=== PATIENT | female | born 1955 | race Caucasian/White ===

== ENCOUNTER → 2016-06-06 | Outpatient (CLI) | payer BC ==
[2016-06-06 12:02] LABS: Anion Gap 12 mmol/L; Blood Urea Nitrogen 17 mg/dL (7-17); Carbon Dioxide 29 mmol/L (22-30); Chloride 103 mmol/L (98-107); Non-African American GFR(MDRD) >60 (>60 ml/min/1.73 sqM); Sodium 144 mmol/L (137-145)
[2016-06-06 12:54] LABS: CH 31.4; CHCM 33.1; HDW 2.22; HGB 14.7 gm/dL (11.4-16.0); MCH 31.2 pg (25.0-35.0); MCHC 32.8 g/dL (31.0-37.0); Mean Platelet Volume 6.9; RBC 4.73 m/uL (3.80-5.40); RDW 11.7 % (11.5-15.5); WBC 9.3 k/uL (3.8-10.6)
== END | disposition home or self-care (01) ==
LOC: LABPAT 11:04
PROVIDERS: ATTEND Internal Medicine Interventional Cardiology
DX: Z01.812 Encounter for preprocedural laboratory examination (principal); R07.9 Chest pain, unspecified
CPT/HCPCS: 80051; 82565; 84520; 85027

== ENCOUNTER 2016-06-13 11:28 | Day surgery (SDC) | payer BC ==
[2016-06-11 14:04] VITALS: BMI 25.4
[~2016-06-13 11:28] MED LIST: ALPRAZolam 0.25 MG TAB PO PRN; ALPRAZolam 0.5 MG TAB PO PRN; ASPIRIN 325 MG TAB PO STA; NITROGLYCERIN SL TABS 0.4 MG TAB SUBLINGUAL PRN; SODIUM CHLORIDE 0.9% 1,000 ML in EMPTY BAG 1 BAG IV ONE
[2016-06-13] MEDS ORDERED: ASPIRIN 81 MG CHEW ONE (12:00)
[2016-06-13 12:17] VITALS: RESP 18
[2016-06-13] MEDS ORDERED: MIDAZOLAM 2 MG/2 ML VIAL IV ONE (12:38)
[2016-06-13] MEDS: MIDAZOLAM 2 MG/2 ML VIAL IV ONE ×2 (12:45→12:58)
[2016-06-13] MEDS ORDERED: LIDOCAINE 2% INJ 20 MG/ML SQ ONE (12:47)
[2016-06-13] MEDS: VERAPAMIL SYRINGE (5 MG/10 ML) INTRAARTER ONE ×2 (12:50→13:02)
[2016-06-13] MEDS ORDERED: RX INFO: IV CONTRAST WAS GIVEN 1 EACH MISC MISCELLANE PRN (13:14)
[2016-06-13] MEDS ORDERED: SODIUM CHLORIDE 0.9% 1,000 ML IV SCH (13:15)
[2016-06-13] MEDS ORDERED: IOHEXOL 350 MG/ML 100 ML BOTTLE INJ ONE (13:15)
[2016-06-13 17:26] VITALS: BP 124/65; PULSE 73; TEMP 98
--- NOTE | 2016-06-13 21:54 | LTR ---
June 13, 2016 RE: Sherry Knapp Dear Ali: Ms. Sherry Knapp underwent a heart catheterization which showed normal coronary angiogram. The procedure was performed from the right radial artery and without any complication. Thank you for allowing me to participate in her care. Sincerely, PRIYANKA HICKEY MD
--- NOTE | 2016-06-13 21:58 | CC ---
DATE OF SERVICE: June 13, 2016 PERFORMING PHYSICIAN: Kin Jerome, conductor freight. PROCEDURE PERFORMED: Selective right and left coronary angiogram. INDICATION: This is a pleasant 61-year-old female patient who was experiencing intermittent episodes of chest discomfort consistent with angina. She has a very significant family history of coronary artery disease. APPROACH: Right radial artery. COMPLICATIONS: None. LEVEL OF SEDATION: Moderate. PROCEDURE DESCRIPTION: After obtaining informed consent, the patient was brought to the cardiac bundle tier and labeler. The right radial artery was cannulated using micropuncture technique. The micropuncture wire passed easily. Then I placed a 6-Sammarinese sheath in the right radial artery. Subsequently I gave the patient 2 mg of verapamil IV and 3000 units of heparin IV. Subsequently, I did selective right and left coronary angiogram using JR4 and JL 3.5 catheters. The procedure was completed without any complication. SELECTIVE CORONARY ANGIOGRAM: 1. Right coronary artery is a large-caliber vessel and it is a dominant vessel. It is angiographically normal. It bifurcates into the PDA and PLV branches distally and both are angiographically normal. 2. The left main is angiographically normal. It bifurcates into the left circumflex and left anterior descending artery. 3. Left circumflex is a large-caliber vessel. It is a nondominant vessel. The proximal left circumflex is normal and gives rises into the first OM branch, which appeared to be angiographically normal. The mid circumflex is normal and gives rise into a second OM branch, which appeared to be angiographically normal and the circ continues after that as a small-caliber vessel in the AV groove. 4. The left anterior descending artery. The proximal LAD is angiographically normal and gives rise into the first diag, which seems to be angiographically normally. The mid LAD and distal LAD are angiographically normal. CONCLUSION: Normal coronary angiogram. POSTPROCEDURE MANAGEMENT: 1. Medical treatment. 2. Follow up with the patient.
== END 2016-06-13 17:26 | disposition home or self-care (01) ==
LOC: CATHCVL 11:28
PROVIDERS: ATTEND Internal Medicine Interventional Cardiology
DX: I20.0 Unstable angina (principal); Z82.49 Family history of ischemic heart disease and other diseases of the circulatory system; I10 Essential (primary) hypertension; E78.5 Hyperlipidemia, unspecified; Z79.82 Long term (current) use of aspirin; Z79.891 Long term (current) use of opiate analgesic; Z79.899 Other long term (current) drug therapy; Z88.1 Allergy status to other antibiotic agents; Z87.891 Personal history of nicotine dependence
CPT/HCPCS: 93454; C1894; J2001; J2250; Q9967; J1644

== ENCOUNTER → 2020-09-19 | Outpatient (CLI) | payer BC ==
--- NOTE | 2020-09-19 17:27 | CT ---
EXAMINATION TYPE: CT angio chest DATE OF EXAM: 09/19/2020 5:04 PM COMPARISON: Same-day radiograph. HISTORY: SOB Hx Covid STAT HOLD AND CALL CT DLP: 289 mGycm Automated exposure control for dose reduction was used. CONTRAST: CTA scan of the thorax is performed with IV Contrast, patient injected with 100 mL of Isovue 370, pul monary embolism protocol. MIP images are created and reviewed. FINDINGS: LUNGS: There is mild dependent atelectasis. No significant infiltrate or suspicious pulmonary nodule. There is no pleural effusion or pneumothorax seen. The tracheobronchial tree is patent. MEDIASTINUM: There is satisfactory enhancement of the pulmonary artery and its branches, there is no CT evidence for pulmonary embolism. There are no greater than 1 cm hilar or mediastinal lymph nodes. No pericardial effusion is seen. OTHER: There is 1.3 cm low attenuating focus in the left hepatic lobe, suspicious features and proba ble benign cyst. There is a 1.2 cm left thyroid nodule. IMPRESSION: NO ACUTE PE OR OTHER CARDIOPULMONARY ABNORMALITY. Incidental left hepatic focus, probable benign cyst. Incidental left thyroid nodule. Consider nonemergent ultrasound follow-up.
== END | disposition home or self-care (01) ==
LOC: RADCTMAIN 16:01
PROVIDERS: ATTEND Internal Medicine
DX: R06.02 Shortness of breath (principal); E04.1 Nontoxic single thyroid nodule
CPT/HCPCS: 71275; Q9967

== ENCOUNTER → 2022-03-22 | Outpatient (CLI) | payer BC ==
--- NOTE | 2022-03-22 14:02 | BD ---
EXAMINATION TYPE: Axial Bone Density DATE OF EXAM: 03/22/2022 COMPARISON: NONE CLINICAL HISTORY: 66 years old Female. ICD-10 CODE: N95.1 POST MENOPAUSAL SYMPTOMS Height: 65 Weight: 168 FRAX RISK QUESTIONS: Alcohol (3 or more units per day): no Family History (Parent hip fracture): no Glucocorticoids (More than 3mos): no (Ex: prednisone, prednisolone, methylprednisolone, dexamethasone, and hydrocortisone). History of Fracture in Adulthood: no Secondary Osteoporosis: no 1. Type 1 Diabetes: no 2. Hyperthyroidism: no 3. Menopause before 45: no 4. Malnutrition: no 5. Chronic liver disease: no Rheumatoid Arthritis: no Current Tobacco Use: no RISK FACTORS HISTORY OF: Family History of Osteoporosis: yes Active: yes Diet low in dairy products/other sources of calcium: no Postmenopausal woman: yes Lost more than 2 inches in height since high school: no MEDICATIONS: Additional Medications: yes calcium, vit d,HBP, cholesterol Additional History: no EXAM MEASUREMENTS: Bone mineral densitometry was performed using the SHIFT System. Bone mineral density as measured about the Lumbar spine is: ----- L1-L4(G/cm2): 1.290 T Score Values are as follows: ----- L1: -0.5 ----- L2: 0.5 ----- L3: 2.1 ----- L4: 1.3 ----- L1-L4: 0.9 Bone mineral density BASELINE Bone mineral density about the R hip (g/cm2): 0.924 Bone mineral density about the L hip (g/cm2): 0.915 T Score values are as follows: -----R Neck: -0.8 -----L Neck: -0.9 -----R Total: -0.4 -----L Total: -0.3 Bone mineral density BASELINE FRAX%s: The graph provided illustrates a 7.9% chance for a major osteoporotic fx and a 0.5% chance fo r the hips probability for fx in 10 years time. IMPRESSION: Normal (Values between +1 and -1 indicate normal bone mass). Consider repeating this study in 5 year s or sooner if there is some new clinical indication. NOTE: T-SCORE=SD OF THE YOUNG ADULT MEAN.
== END | disposition home or self-care (01) ==
LOC: RADBDWWP 12:45
PROVIDERS: ATTEND Obstetrics & Gynecology
DX: N95.1 Menopausal and female climacteric states (principal)
CPT/HCPCS: 77080

== ENCOUNTER → 2024-09-02 | Outpatient (CLI) | payer BC ==
--- NOTE | 2024-09-03 09:26 | XR ---
EXAMINATION TYPE: XR ribs LT w pa chest xray, 5 views DATE OF EXAM: 09/02/2024 6:15 PM COMPARISON: 09/19/2020 CLINICAL INDICATION: Female, 69 years old with history of R07.81 PLEURODYNIA; PHH, pain FINDINGS: Heart normal size. Aorta and pulmonary vasculature within normal limits. Hazy densities relating to o verlying soft tissue. Some strandy atelectasis noted at the left base. No consolidation or pleural ef fusion. No displaced left rib fracture is seen. IMPRESSION: Some strandy left basilar atelectasis. No acute cardiopulmonary process. No displaced left rib fractu re seen. [facility], Workstation: [id number], 09/03/2024 9:24 AM
== END | disposition home or self-care (01) ==
LOC: RADXRMAIN 17:35
PROVIDERS: ATTEND Physician Assistant
DX: J98.11 Atelectasis (principal); R07.81 Pleurodynia